=== PATIENT | female | born 1945 | race Asian ===

== ENCOUNTER 2019-08-11 13:34 | Inpatient (IN) | payer OTHER, BC ==
--- NOTE | 2019-08-11 14:30 | PDOC ---
History of Present Illness - General Chief Complaint: Back Pain Stated Complaint: PAIN Time Seen by Provider: 08/11/19 14:04 - History of Present Illness Initial Comments: Ms. Altamirano is a 73 y/o female with PMH significant for HTN and DM, sent in by Dr. Flores today. She was diagnosed with cholelithiasis about a year ago and was scheduled for an elective cholecystectomy by Dr. Nolasco on . On Monday, she started having right lower back pain and presented to Dr. Flores. She had a CT abd/pelv and US pelv done yesterday, which showed possible choledocholithiasis vs stone in the cystic duct. Sent in for possible cholecystectomy vs ERCP. At present, reports mild right lower back pain. Denies fever/chills. Denies chest pain/shortness of breath. Denies abdominal pain/dysuria. Denies cough. Denies fall. Past History - Past Medical History Allergies/Adverse Reactions: Allergies Allergy/AdvReac Type Severity Reaction Status Date / Time No Known Allergies Allergy Verified 08/11/19 13:39 Home Medications: Ambulatory Orders Albuterol Sulfate Inhaler - [Ventolin HFA Inhaler -] 1 - 2 inh PO Q4H PRN #1 inhaler 01/06/16 Glimepiride [Glimepiride -] 0 mg PO DAILY 01/06/16 Levofloxacin [Levaquin] 500 mg PO DAILY 01/06/16 Promethazine HCl [Phenergan Plain 6.25 MG/5 ML -] 6.25 mg PO PRN 01/06/16 Simvastatin [Zocor -] 10 mg PO DAILY 01/06/16 COPD: No Other medical history: gallstones - Psycho Social/Smoking Cessation Hx Smoking History: Never smoked Hx Alcohol Use: No Drug/Substance Use Hx: No Substance Use Type: None Review of Systems - Review of Systems Comments:: GENERAL/CONSTITUTIONAL: No fever or chills. No weakness._ HEAD, EYES, EARS, NOSE AND THROAT: No change in vision. No change in hearing. No sore throat._ CARDIOVASCULAR: No chest pain or shortness of breath_ RESPIRATORY: Denies cough, hemoptysis_ GASTROINTESTINAL: No nausea, vomiting, diarrhea or constipation._ GENITOURINARY: No dysuria, frequency, or change in urination._ MUSCULOSKELETAL: Reports right lower back pain. SKIN: No rash_ NEUROLOGIC: No headache, vertigo, loss of consciousness, or change in strength/ sensation._ ENDOCRINE: No increased thirst. No abnormal weight change_ HEMATOLOGIC/LYMPHATIC: No anemia, easy bleeding, or history of blood clots._ ALLERGIC/IMMUNOLOGIC: No hives or skin allergy._ *Physical Exam - Vital Signs Last Vital Signs Temp Pulse Resp BP Pulse Ox 98.3 F 82 18 145/62 99 08/11/19 13:36 08/11/19 13:36 08/11/19 13:36 08/11/19 13:36 08/11/19 13:36 - Physical Exam GENERAL: Awake, alert, and oriented to person/place/time, in no acute distress_ HEAD: No signs of trauma, normoc ephalic, atraumatic _ EYES: PERRLA, EOMI, sclera anicteric, conjunctiva clear_ ENT: Hearing grossly normal, nares patent, oropharynx clear without exudates. No uvular deviation. Moist mucosa_ NECK: Normal ROM, supple, no lymphadenopathy, JVD, or masses_ LUNGS: No distress, speaks in full sentences, clear to auscultation bilaterally _ HEART: Regular rate and rhythm, normal S1 and S2, no murmurs appreciated, peripheral pulses normal and equal bilaterally._ ABDOMEN: Soft, nontender, normoactive bowel sounds. No guarding, no rebound. No masses_ BACK: Mild TTP right lower back. EXTREMITIES: Normal inspection, Normal range of motion, no edema. No clubbing or cyanosis_ NEUROLOGICAL: Cranial nerves II through XII grossly intact. Normal speech, normal gait, no focal sensorimotor deficits _ SKIN: Warm, Dry, normal turgor, no rashes or lesions noted_ Medical Decision Making - Medical Decision Making 08/11/19 14:29 Pt sent in by Dr. Jacquie Flores for RUQ pain and right sided back pain and possible choledocholithiasis seen on CT scan yesterday. Pt scheduled for elective cholecystectomy on by Dr. Nolasco. 08/11/19 14:45 D/w Dr. Flores who accepts the patient for admission. Consult placed to Dr. Mcdonough per Dr. Flores's request for GI/ERCP. Discharge - Discharge Information Problems reviewed: Yes Clinical Impression/Diagnosis: Choledocholithiasis Condition: Stable - Admission Yes - Follow up/Referral - Patient Discharge Instructions - Post Discharge Activity
--- NOTE | 2019-08-11 14:43 | PDOC ---
Documentation entered by Abigail Bowles SCRIBE, acting as scribe for Micah Cabrera MD. Micah Cabrera MD: This documentation has been prepared by the Jelena gramajo Nirvannie, SCRIBE, under my direction and personally reviewed by me in its entirety. I confirm that the documentation accurately reflects all work, treatment, procedures, and medical decision making performed by me. Attending Attestation - Resident Resident Name: GuillermoLazaro - ED Attending Attestation I have performed the following: I have examined & evaluated the patient, The case was reviewed & discussed with the resident, I agree w/resident's findings & plan, Exceptions are as noted - HPI HPI: 08/11/19 14:40 The patient is a 73 year old female, with a significant past medical history of DM, who presents to the emergency department with low back pain and abdominal pain. Pt was being evaluated by Dr. Flores and had outpt US and CT that showed possible GB sludge. Pt was sent in for further evaluation and possible MRCP. She denies recent fevers, chills, headache or dizziness. She denies recent nausea, vomiting, diarrhea or constipation. She denies recent dysuria, frequency, urgency or hematuria. She denies recent chest pain or shortness of breath. Allergies: NKDA Primary Care Physician: Dr. Flores - Physicial Exam PE: 08/11/19 14:44 "GENERAL: Awake, alert, and fully oriented, in no acute distress. HEAD: No signs of trauma EYES: PERRLA, EOMI, sclera anicteric, conjunctiva clear ENT: Auricles normal inspection, hearing grossly normal, nares patent, oropharynx clear without exudates. Moist mucosa NECK: Nontender, no stepoffs, Normal ROM, supple, no lymphadenopathy, JVD, or masses LUNGS: Breath sounds equal, clear to auscultation bilaterally. No wheezes, and no crackles HEART: Regular rate and rhythm, normal S1 and S2, no murmurs, rubs or gallops ABDOMEN: Soft, nontender, normoactive bowel sounds. No guarding, no rebound. No masses EXTREMITIES: Normal range of motion, no edema. No clubbing or cyanosis. No cords, erythema, or tenderness NEUROLOGICAL: Cranial nerves II through XII intact. 5/5 strength and sensation in all extremities, Normal speech, normal gait, normal cerebellar function SKIN: Warm, Dry, normal turgor, no rashes or lesions noted. - Medical Decision Making 08/11/19 14:45 73 F with abnormal outpt imaging studies, sent in for GI eval and possible MRCP. - Labs - GI c/s - Admit Dr. Flores
[2019-08-11] MEDS ORDERED: ACETAMINOPHEN 325 MG TABLET (FP) PO PRN (15:09)
[2019-08-11 15:29] LABS: EOS % 4.6 % (0-4.5); HEMATOCRIT 39.3 % (32.4-45.2); HEMOGLOBIN 13.1 GM/dL (10.7-15.3); LYMPH % 33.3 % (8-40); MCH 29.5 pg (25.7-33.7); MCHC 33.3 g/dl (32.0-36.0); MEAN CELL VOLUME 88.6 fl (80-96); MEAN PLT VOLUME 8.8 fl (7.5-11.1); NEUT % 52.1 % (42.8-82.8); PLATELET COUNT 178 K/MM3 (134-434); RBC 4.43 M/mm3 (3.60-5.2); RDW 13.4 % (11.6-15.6)
[2019-08-11 15:46] LABS: INR 0.94 (0.83-1.09); PROTHROMBIN TIME (PATIENT) 11.1 SEC (9.7-13.0)
[2019-08-11 15:50] LABS: ALBUMIN 3.8 g/dl (3.4-5.0); BILIRUBIN,TOTAL 0.2 mg/dL (0.2-1); BLOOD UREA NITROGEN 17.4 mg/dL (7-18); CALCIUM 9.1 mg/dL (8.5-10.1); CREATININE 1.1 mg/dL (0.55-1.3); POTASSIUM 4.1 mmol/L (3.5-5.1); TOT PROT 7.7 g/dl (6.4-8.2)
[2019-08-11] MEDS: INSULIN SLIDING SCALE (NOVOLOG) 1 VIAL SQ SCH ×2 (16:05→22:14)
[2019-08-11 21:17] VITALS: BMI 24.6
[2019-08-11] MEDS: HEPARIN NA (PORCINE) 5,000 UNITS/ML 1ML VIAL SQ SCH (22:10)
[2019-08-12] MEDS: INSULIN SLIDING SCALE (NOVOLOG) 1 VIAL SQ SCH ×4 (06:10→21:53)
--- NOTE | 2019-08-12 08:49 | HP ---
Admitting History and Physical - Primary Care Physician PCP: Jacquie Flores S - Admission Chief Complaint: back pain gallstones History of Present Illness: The patient is a 73 year old female, with a significant past medical history of DM, who presents to the emergency department with low back pain and abdominal pain. Pt was being evaluated by me and had outpt US and CT that showed possible CBD stones . Pt was sent in for further evaluation and possible MRCP. She denies recent fevers, chills, headache or dizziness. She denies recent nausea, vomiting, diarrhea or constipation. She denies recent dysuria, frequency, urgency or hematuria. She denies recent chest pain or shortness of breath. 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) ...: No Endocrine: Yes: Diabetes Mellitus - Smoking History Smoking history: Never smoked - Alcohol/Substance Use Hx Alcohol Use: No History of Substance Use: reports: None - Social History Usual Living Arrangement: Yes: With Spouse Do you think of yourself as: Straight/Heterosexual ADL: Independent History of Recent Travel: No Home Medications - Allergies Allergies/Adverse Reactions: Allergies Allergy/AdvReac Type Severity Reaction Status Date / Time No Known Allergies Allergy Verified 08/11/19 13:39 - Home Medications Home Medications: Ambulatory Orders Glimepiride [Glimepiride -] 1 mg PO DAILY 01/06/16 Simvastatin [Zocor -] 10 mg PO HS 01/06/16 Family Medical History Family History: Unremarkable Review of Systems - Review of Systems Constitutional: denies: Chills, Fever, Lethargy, Loss of Appetite Eyes: denies: Blind Spots, Blurred Vision, Double Vision HENT: denies: Difficult Swallowing, Ear Pain, Epistaxis Neck: denies: Stiffness, Tenderness Cardiovascular: denies: Chest Pain, Palpitations, Shortness of Breath Respiratory: denies: Cough, SOB, SOB on Exertion Gastrointestinal: reports: Abdominal Pain (R sided). denies: Diarrhea, Vomiting Genitourinary: denies: Dysuria, Flank Pain Integumentary: denies: Bruising, Change in Color, Eczema, Erythema, Wound Neurological: denies: Change in LOC, Change in Speech, Confusion, Dizziness, Seizure, Syncope, Weakness Hematology/Lymphatic: denies: Easily Bruised, Excessive Bleeding Psychiatric: denies: Altered Sleep Pattern, Anxiety, Depression, Suicidal Physical Examination Vital Signs: Vital Signs Temperature 97.8 F 08/12/19 05:41 Pulse Rate 70 08/12/19 05:41 Respiratory Rate 18 08/12/19 05:41 Blood Pressure 106/76 08/12/19 05:41 O2 Sat by Pulse Oximetry (%) 99 08/11/19 21:00 Constitutional: Yes: No Distress, Calm Eyes: Yes: Conjunctiva Clear HENT: Yes: Atraumatic Neck: Yes: Supple Cardiovascular: Yes: Regular Rate and Rhythm Respiratory: Yes: Regular Gastrointestinal: Yes: Soft, Tenderness (mild R sided) Renal/: No: Hematuria Musculoskeletal: No: Joint Stiffness, Joint Swelling Extremities: No: Cold, Cool, Cyanosis Edema: No Neurological: Yes: WNL, Alert, Oriented ...Motor Strength: WNL Psychiatric: Yes: WNL, Alert, Oriented. No: Agitated, Suicidal Ideation Labs: CBC, BMP 08/11/19 15:09 08/11/19 15:09 Imaging - Results Chest X-ray: Report Reviewed Other: Report Reviewed Assessment/Plan The patient is a 73 year old female, with a significant past medical history of DM, who presents to the emergency department with low back pain and abdominal pain. H/o gallstones and possible stones in CBD. admit; MRCP; GI and surgery eval d/w pt and staff
--- NOTE | 2019-08-12 09:19 | EKG ---
Test Reason : Blood Pressure : / mmHG Vent. Rate : 065 BPM Atrial Rate : 065 BPM P-R Int : 190 ms QRS Dur : 090 ms QT Int : 404 ms P-R-T Axes : 062 070 064 degrees QTc Int : 420 ms NORMAL SINUS RHYTHM NORMAL ECG WHEN COMPARED WITH ECG OF 05-AUG-2019 10:09, NO SIGNIFICANT CHANGE WAS FOUND Confirmed by Ford Jennings ([id number]) on 08/12/2019 9:18:49 AM Referred By: Confirmed By:Ford Jennings
[2019-08-12] MEDS: HEPARIN NA (PORCINE) 5,000 UNITS/ML 1ML VIAL SQ SCH ×2 (09:31→21:54)
[2019-08-12 09:41] LABS: ALBUMIN 3.6 g/dl (3.4-5.0); BILIRUBIN,TOTAL 0.7 mg/dL (0.2-1); CALCIUM 8.8 mg/dL (8.5-10.1); CREATININE 0.8 mg/dL (0.55-1.3); POTASSIUM 4.1 mmol/L (3.5-5.1); TOT PROT 7.4 g/dl (6.4-8.2)
[2019-08-12 09:47] LABS: PROTHROMBIN TIME (PATIENT) 11.8 SEC (9.7-13.0)
[2019-08-12] MEDS ORDERED: INSULIN (NOVOLOG) ASPART 100 UNITS/ML 10ML VIAL ONE (11:53)
[2019-08-12 12:41] LABS: BASO % 1.4 % (0-2.0); EOS % 5.6 % (0-4.5); HEMATOCRIT 39.5 % (32.4-45.2); LYMPH % 35.9 % (8-40); MCH 29.8 pg (25.7-33.7); MEAN CELL VOLUME 90.3 fl (80-96); MEAN PLT VOLUME 9.5 fl (7.5-11.1); MONO % 10.8 % (3.8-10.2); NEUT % 46.3 % (42.8-82.8); PLATELET COUNT 170 K/MM3 (134-434); RBC 4.38 M/mm3 (3.60-5.2); WHITE BLOOD COUNT 5.2 K/mm3 (4.0-10.0)
--- NOTE | 2019-08-12 12:53 | CON.GI ---
Consult Consult Specialty:: Gastroenterology Referred by:: Dr Flores Reason for Consultation:: Gallstones - History of Present Illness Chief Complaint: low back pain History of Present Illness: 73F is scheduled for an elective cholecystectomy on 08/[address] Nolasco for gallstones that have been causing colicky lower back pain. Her CT now reveals stones at the cystic and common duct confluence. Her LFTs are WNL. NO chill or fevers. MRCP has already been ordered. She had an EGD with Dr. Lara on that revealed bile reflux gastritis and GERD. Colonoscopy on 05/07/15 revealed large internal hemorrhoids. - History Source History Provided By: Patient Limitations to Obtaining History: No Limitations - Past Medical History Cardio/Vascular: Yes: Hyperlipdemia Gastrointestinal: Yes: Other ([address] Lara) ...: No Endocrine: Yes: Diabetes Mellitus - Past Surgical History Past Surgical History: Yes: Cataract Removal - Alcohol/Substance Use Hx Alcohol Use: No History of Substance Use: reports: None - Smoking History Smoking history: Never smoked - Social History Usual Living Arrangement: With Spouse ADL: Independent Occupation: retired teacher Place of : Other ([employer] [facility] [employer]) Came to [place] (year): age 42 History of Recent Travel: No Home Medications - Allergies Allergies/Adverse Reactions: Allergies Allergy/AdvReac Type Severity Reaction Status Date / Time No Known Allergies Allergy Verified 08/11/19 13:39 - Home Medications Home Medications: Ambulatory Orders Glimepiride [Glimepiride -] 1 mg PO DAILY 01/06/16 Simvastatin [Zocor -] 10 mg PO HS 01/06/16 Family Medical History Family Hx Cardiac Disorders: Mother (CHF) Family Hx Diabetes: Mother (DM), Sister (paternal aunt had breast cancer) Other Family History: Father 76 HTN and RA, Mother 71, had DM and CHF Review of Systems - Review of Systems Constitutional: reports: No Symptoms Eyes: reports: No Symptoms HENT: reports: No Symptoms Neck: reports: No Symptoms Cardiovascular: reports: No Symptoms Respiratory: reports: No Symptoms Gastrointestinal: reports: No Symptoms Musculoskeletal: reports: Back Pain Physical Exam-GI Vital Signs: Vital Signs Temperature 97.8 F 08/12/19 05:41 Pulse Rate 70 08/12/19 05:41 Respiratory Rate 18 08/12/19 05:41 Blood Pressure 106/76 08/12/19 05:41 O2 Sat by Pulse Oximetry (%) 99 08/11/19 21:00 CBC,CMP WBC 5.2 K/mm3 (4.0-10.0) 08/12/19 07:38 RBC 4.38 M/mm3 (3.60-5.2) 08/12/19 07:38 Hgb 13.0 GM/dL (10.7-15.3) 08/12/19 07:38 Hct 39.5 % (32.4-45.2) 08/12/19 07:38 MCV 90.3 fl (80-96) 08/12/19 07:38 MCH 29.8 pg (25.7-33.7) 08/12/19 07:38 MCHC 33.0 g/dl (32.0-36.0) 08/12/19 07:38 RDW 13.0 % (11.6-15.6) 08/12/19 07:38 Plt Count 170 K/MM3 (134-434) 08/12/19 07:38 MPV 9.5 fl (7.5-11.1) 08/12/19 07:38 Absolute Neuts (auto) 2.4 K/mm3 (1.5-8.0) 08/12/19 07:38 Neutrophils % 46.3 % (42.8-82.8) 08/12/19 07:38 Lymphocytes % 35.9 % (8-40) 08/12/19 07:38 Monocytes % 10.8 % (3.8-10.2) H 08/12/19 07:38 Eosinophils % 5.6 % (0-4.5) H 08/12/19 07:38 Basophils % 1.4 % (0-2.0) 08/12/19 07:38 Nucleated RBC % 0 % (0-0) 08/12/19 07:38 Sodium 139 mmol/L (136-145) 08/12/19 07:38 Potassium 4.1 mmol/L (3.5-5.1) 08/12/19 07:38 Chloride 106 mmol/L (98-107) 08/12/19 07:38 Carbon Dioxide 28 mmol/L (21-32) 08/12/19 07:38 Anion Gap 5 MMOL/L (8-16) L 08/12/19 07:38 BUN 15.0 mg/dL (7-18) 08/12/19 07:38 Creatinine 0.8 mg/dL (0.55-1.3) 08/12/19 07:38 Est GFR (CKD-EPI)AfAm 85.97 08/12/19 07:38 Est GFR (CKD-EPI)NonAf 74.17 08/12/19 07:38 POC Glucometer 105 UNITS (80-120) 08/12/19 05:56 Random Glucose 102 mg/dL (74-106) 08/12/19 07:38 Calcium 8.8 mg/dL (8.5-10.1) 08/12/19 07:38 Total Bilirubin 0.7 mg/dL (0.2-1) 08/12/19 07:38 AST 20 U/L (15-37) 08/12/19 07:38 ALT 26 U/L (13-61) 08/12/19 07:38 Alkaline Phosphatase 62 U/L (45-117) 08/12/19 07:38 Total Protein 7.4 g/dl (6.4-8.2) 08/12/19 07:38 Albumin 3.6 g/dl (3.4-5.0) 08/12/19 07:38 Current Medications Generic Name Dose Route Start Last Admin Trade Name Freq PRN Reason Stop Dose Admin Acetaminophen 650 mg 08/11/19 15:09 Tylenol - PO Q6H PRN PAIN Heparin Sodium (Porcine) 5,000 unit 08/11/19 22:00 08/12/19 09:31 Heparin - SQ 5,000 unit BID VETO Administration Insulin Aspart 1 vial 08/11/19 16:30 08/12/19 12:39 Novolog Vial Sliding Scale - SQ Not Given ACHS [facility] Protocol Constitutional: Yes: Calm Eyes: Yes: Conjunctiva Clear HENT: Yes: Normocephalic Neck: Yes: Trachea Midline Cardiovascular: Yes: Regular Rate and Rhythm Respiratory: Yes: CTA Bilaterally Gastrointestinal Inspection: Yes: WNL ...Auscultate: Yes: Normoactive Bowel Sounds ...Palpate: Yes: Soft, Other (nontender) ...Rectal Exam: Yes: Guaiac Negative (no masses) Labs: CBC, BMP 08/12/19 07:38 08/12/19 07:38 INR, PTT INR 1.00 (0.83-1.09) 08/12/19 07:38 Problem List - Problems (1) Gallstones Code(s): K80.20 - CALCULUS OF GALLBLADDER W/O CHOLECYSTITIS W/O OBSTRUCTION (2) Choledocholithiasis Code(s): K80.50 - CALCULUS OF BILE DUCT W/O CHOLANGITIS OR CHOLECYST W/O OBST (3) Diabetes 1.5, managed as type 2 Code(s): E13.9 - OTHER SPECIFIED DIABETES MELLITUS WITHOUT COMPLICATIONS (4) Hyperlipidemia Code(s): E78.5 - HYPERLIPIDEMIA, UNSPECIFIED (5) GERD (gastroesophageal reflux disease) Code(s): K21.9 - GASTRO-ESOPHAGEAL REFLUX DISEASE WITHOUT ESOPHAGITIS Assessment/Plan Assessment: - Vickie will need an MRCP to exclude CBD stones. I explained that her normal LFTs and lack of ductal dilation argue against this. If CBD stones are found then I will schedule and ERCP. I have discussed ERCP in detail including informing her of the potential for such complications as perforation, hemorrhage and ERCP induced pancreatitis leading to multiorgan failure. She is in a position to make an informed consent. Plan: -- Await MRCP, if positive will proceed with ERCP; if not then cholcystectomy
--- NOTE | 2019-08-12 13:09 | PN ---
Progress Note (short form) - Note Progress Note: surgery 73f with known biliary colic. scheduled for cholecystectomy. found to have possible choledocholithiasis on CT during workup of low back pain. abd- soft, nt Laboratory Tests 08/12/19 08/12/19 07:38 07:38 WBC 5.2 Total Bilirubin 0.7 AST 20 ALT 26 Alkaline Phosphatase 62 plan- biliary colic. mrcp to r/o choledocholithiais. if mrcp negative will likely proceed with cholecystectomy this admission. tentatively scheduled 9am Monday
--- NOTE | 2019-08-12 13:57 | CONS ---
DATE OF CONSULTATION: 08/12/2019 REASON FOR CONSULTATION: Cholelithiasis, abdominal pain, choledocholithiasis. This is an inpatient consultation at the request of Dr. Jacquie Flores. BRIEF HISTORY: This is a 73-year-old female with known biliary colic scheduled for cholecystectomy on August 21 who has been complaining of lower back pain. She had an outpatient CAT scan of her abdomen and pelvis, which suggested the possibility of a common bile duct stone. She was admitted to the hospital. Noted to have normal liver function tests. MRCP was ordered at request of the radiologist. PAST MEDICAL HISTORY: Significant for hyperlipidemia. Diabetes. PAST SURGICAL HISTORY: Includes only cataract. SOCIAL HISTORY: Negative for alcohol, negative for tobacco. ALLERGIES: She has no known drug allergies. HOME MEDICATIONS: Include Zocor and glimepiride. FAMILY HISTORY: Negative for malignancy in the immediate family. REVIEW OF SYSTEMS: General: Denies fatigue or malaise. Cardiac: Denies chest pain or palpitations. Respiratory: Denies shortness of breath or wheeze. Gastrointestinal: No nausea, no vomiting, no diarrhea, no constipation, no blood in her stool. Admits to occasional upper abdominal pain after eating fatty meals. Genitourinary: Admits to lower back pain. Denies dysuria. Musculoskeletal: Denies joint pain. Psychiatric: Denies anxiety, depression, or hearing voices. PHYSICAL EXAMINATION: General: This is a well-developed, well-nourished 73-year-old female in no distress. Vital Signs: She is afebrile. Her vital signs are stable. HEENT: Her head is normocephalic. Her sclerae are anicteric. Neck: Supple. Chest: Clear. Abdomen: Soft, nontender. She has a small ventral hernia at the midportion of her abdomen. Skin: She has no surgical scars. Extremities: Have no edema. DIAGNOSTIC DATA: On review of her laboratory, a white blood cell count is normal. Her liver function tests are normal. There is no urinalysis available now, but on August 05, it was unremarkable. Review of her imaging, she had a CAT scan, which is as stated in the HPI. She also had an ultrasound done on January 23, 2019, which showed cholelithiasis. ASSESSMENT: This is a 73-year-old female with history of symptomatic cholelithiasis with lower back pain now with a CAT scan suggesting the possibility of choledocholithiasis. PLAN: An MRCP has been ordered. If this confirms that the common bile duct is not with stones, which would be most likely clinically since the duct is not dilated and since there are normal liver function tests, I will likely be able to safely proceed with cholecystectomy. This could possibly be done this admission if the patient agrees with tentative time for tomorrow morning. If, however, there are stones found on MRCP, she may benefit from an ERCP first. At this point, we will follow MRCP and make further recommendations. Risks and benefits of surgery have been explained to patient in detail. These are including, but not limited to, the possibility of conversion to open, possibility of common bile duct injury, possibility of cystic duct stump leak, possibility of injury to viscera, possibility of retained stone, possibility of blood loss requiring blood transfusion, possibility of future obstruction, possibility of future hernia plus a multitude of medical risks including, but not limited to, cardiac, neurologic, pulmonary, and vascular complications, even . The patient understands these risks and is agreeable to surgery. DO JESSICA NIXON/[id number]
[2019-08-12] MEDS ORDERED: PT OWN MED DRAWER 7, Y5N ONE (17:13)
[2019-08-13] MEDS: INSULIN SLIDING SCALE (NOVOLOG) 1 VIAL SQ SCH ×4 (06:55→21:28)
--- NOTE | 2019-08-13 07:07 | PN ---
Progress Note, Physician Chief Complaint: in bed NAD afebrile no pain awaiting MRI d/w surgery and pt if no CBD stones to have cholecystectomy today she agreed - Current Medication List Current Medications: Active Medications Acetaminophen (Tylenol -) 650 mg PO Q6H PRN PRN Reason: PAIN Heparin Sodium (Porcine) (Heparin -) 5,000 unit SQ BID VETO Last Admin: 08/12/19 21:54 Dose: 5,000 unit Insulin Aspart (Novolog Vial Sliding Scale -) 1 vial SQ ACHS [facility]; Protocol Last Admin: 08/13/19 06:55 Dose: Not Given - Objective Vital Signs: Vital Signs Temperature 97.5 F L 08/13/19 06:00 Pulse Rate 58 L 08/13/19 06:00 Respiratory Rate 18 08/13/19 06:00 Blood Pressure 135/59 L 08/13/19 06:00 O2 Sat by Pulse Oximetry (%) 99 08/12/19 09:00 Constitutional: Yes: No Distress Eyes: Yes: Conjunctiva Clear HENT: Yes: Atraumatic Neck: Yes: Supple Cardiovascular: Yes: Regular Rate and Rhythm Respiratory: Yes: CTA Bilaterally Gastrointestinal: Yes: Soft. No: Tenderness Genitourinary: No: Hematuria Musculoskeletal: No: Joint Stiffness, Joint Swelling Extremities: No: Cold, Cool, Cyanosis Edema: No Integumentary: No: Rash, Venous Stasis Changes Neurological: Yes: Alert, Oriented ...Motor Strength: WNL Psychiatric: Yes: Alert, Oriented. No: Agitated, Suicidal Ideation Labs: CBC, BMP 08/12/19 07:38 08/12/19 07:38 INR, PTT INR 1.00 (0.83-1.09) 08/12/19 07:38 - ....Imaging Other: Report Reviewed Assessment/Plan The patient is a 73 year old female, with a significant past medical history of DM, who presents to the emergency department with low back pain and abdominal pain. H/o gallstones and possible stones in CBD. MRCP; GI and surgery eval if no CBD stones for cholecystectomy today d/w pt and staff d/w surgery dr Irvin pt agreed with plan
[2019-08-13] MEDS: HEPARIN NA (PORCINE) 5,000 UNITS/ML 1ML VIAL SQ SCH ×2 (10:28→21:28)
[2019-08-13] MEDS ORDERED: ONDANSETRON 4 MG/2 ML VIAL IVPUSH PRN (12:21)
[2019-08-13] MEDS ORDERED: MORPHINE SULFATE 8 MG/ML VIAL IVPB PRN (12:21)
[2019-08-13] MEDS ORDERED: oxyCODONE HCL 5 MG TABLET PO PRN (12:21)
[2019-08-13] MEDS ORDERED: fentaNYL CITRATE 250 MCG/5 ML VIAL ONE (12:24)
[2019-08-13] MEDS ORDERED: ROCURONIUM BROMIDE 50 MG/5 ML SYRINGE ONE (12:25)
[2019-08-13] MEDS ORDERED: PROPOFOL 20 ML ONE ×2 (12:25)
[2019-08-13] MEDS ORDERED: MIDAZOLAM HCL 2 MG/2 ML SINGLE DOSE VIAL ONE (12:25)
--- NOTE | 2019-08-13 12:25 | OP ---
Operative Note - Note: Operative Date: 08/13/19 Pre-Operative Diagnosis: acute cholecystitis,cholelithiasis Operation: laparoscopic cholecystectomy, lavage Findings: distended edematous gb with large stone, hydrops Post-Operative Diagnosis: Same as Pre-op Surgeon: Marquis Irvin Barrel Leveler: Lynda Mcqueen Anesthesiologist/FIELD SOFTWARE ENGINEER: Neema Medrano Anesthesia: General (v) Specimens Removed: gb Estimated Blood Loss (mls): 10 Operative Report Dictated: Yes
--- NOTE | 2019-08-13 12:28 | PN ---
Progress Note (short form) - Note Progress Note: surgery mrcp shows no choledocholithiasis but hydrops of gb. pt till with some pain abd- mild ruq tenderness Plan- likley acute on chronic cholecystitis. will proceed with cholecystectomy. invanz.
[2019-08-13] MEDS ORDERED: morphine SULFATE 4 MG/ML VIAL IVPB PRN (12:49)
[2019-08-13] MEDS ORDERED: ERTAPENEM SODIUM 1 GM in SODIUM CHLORIDE 50 ML IVPB ONE (13:00)
[2019-08-13] MEDS ORDERED: ERTAPENEM SODIUM 1 GM VIAL IVPB ONE (13:05)
[2019-08-13] MEDS ORDERED: GLYCOPYRROLATE 0.2 MG/1 ML VIAL ONE (13:23)
[2019-08-13] MEDS ORDERED: DEXAMETHASONE SOD PHOSPHATE 4 MG/1 ML VIAL ONE (13:23)
[2019-08-13] MEDS ORDERED: NEOSTIGMINE METHYLSULFATE 0.5 MG/ML - 10 ML MDV ONE (13:24)
[2019-08-13] MEDS ORDERED: IBUPROFEN 800 MG/8 ML IJ IVPB PRN (14:11)
[2019-08-13] MEDS ORDERED: LACTATED RINGERS SOLUTION 1,000 ML IV SCH (14:15)
[2019-08-13] MEDS ORDERED: ACETAMINOPHEN 325 MG TABLET (FP) PO PRN (14:19)
--- NOTE | 2019-08-13 15:07 | OP ---
DATE OF OPERATION: 08/13/2019 PREOPERATIVE DIAGNOSIS: Acute cholecystitis, cholelithiasis. POSTOPERATIVE DIAGNOSIS: Acute cholecystitis, cholelithiasis. PROCEDURE: Laparoscopic cholecystectomy and lavage. SURGEON: Marquis Irvin DO AUTOMATION MECHANIC: RUEL Salazar ANESTHESIOLOGIST: Neema Medrano MD SPECIMEN: Gallbladder. INTRAOPERATIVE FINDINGS: A distended, inflamed gallbladder with hydrops and a large stone. BLOOD LOSS: Approximately 30 mL. DRAINS: None. DISPOSITION: Recovery room in stable condition. BRIEF HISTORY: A 73-year-old, female with history of biliary colic who developed abdominal pain and had an outpatient CAT scan suggestive of possible choledocholithiasis. She was admitted to the hospital. Had an ERCP, which showed no choledocholithiasis, but showed acute cholecystitis with hydrops of the gallbladder. She presents now for cholecystectomy. She was given Invanz, prior to procedure. PROCEDURE: The patient was placed in the supine position. After general anesthesia was initiated, the abdomen was prepped and draped in sterile fashion. A transverse incision was made infraumbilical with scalpel used to go through skin and subcutaneous tissue. The fascia was lifted with a Dhara clamp, Veress needle was inserted, and pneumoperitoneum was created. Next, a 10-mm, 0-degree laparoscope was placed, followed by insertion of additional 11-mm trocar subxiphoid and two 5-mm trocars placed in the right upper quadrant. Attention was then turned toward the gallbladder. It was distended, edematous, consistent with acute cholecystitis. A Veress needle decompression was done, in order to enable grasping of the gallbladder. Hydrops was confirmed. The fundus was lifted cephalad. The infundibulum retracted laterally. The peritoneal peel was dissected down, exposing a small cystic duct and cystic artery. Both were clipped and divided. The gallbladder was then liberated from the liver bed using electrocautery and hemostasis was maintained using electrocautery. The gallbladder was placed in a specimen bag, removed through the infraumbilical trocar site, after a significant fascial dilatation, and sent to Pathology marked as specimen. A vigorous lavage was then done and all return was clear. Trocars were removed under direct visualization, as pneumoperitoneum was released, and no bleeding was noted. Next, the fascia of the infraumbilical trocar site was closed with multiple interrupted 0 Vicryl sutures and the four skin incisions were closed with Biosyn. A Dermabond dressing was placed. Overall, the patient tolerated procedure well. There were no complications. DO JESSICA NIXON/[id number] MTDD
--- NOTE | 2019-08-13 15:25 | SURG ---
Surgery Bar Examiner Note Bar Examiner: Lynda Mcqueen PA-C Date of Service: 08/13/19 Diagnosis: acute cholecystitis,cholelithiasis Procedure: laparoscopic cholecystectomy, lavage I was present for the entirety of the operative procedure. For further detail, please refer to operative report. Visit type - Case Type Case Type: ED Admission - Emergency Emergency Visit: Yes ED Registration Date: 08/11/19 Care time: The patient presented to the Emergency Department on the above date and was hospitalized for further evaluation of their emergent condition. - New patient This patient is new to me today: Yes Date on this admission: 08/13/19
[2019-08-13] MEDS: D5-1/2NS+20 MEQ KCL - 20 MEQ/1,000 ML INFUS.BAG IV SCH (16:00)
--- NOTE | 2019-08-13 20:24 | PN.GI ---
GI Progress Note Subjective: GI Note: MRCP negative so underwent cholcystectomy today - Objective Vital Signs: Vital Signs Temperature 97.0 F L 08/13/19 16:21 Pulse Rate 49 L 08/13/19 16:21 Respiratory Rate 16 08/13/19 16:21 Blood Pressure 139/55 L 08/13/19 16:21 O2 Sat by Pulse Oximetry (%) 100 08/13/19 16:21 Constitutional: Calm Gastrointestinal Inspection: Yes: Other (healing laparoscopic incisions) ...Auscultate: Yes: Hypoactive Bowel Sounds Labs: CBC, BMP 08/12/19 07:38 08/12/19 07:38 INR, PTT INR 1.00 (0.83-1.09) 08/12/19 07:38 Assessment/Plan Assessment: - Choledocholithiasis excluded by MRCP now s/p lap choly. Plan: -- Postop care as per surgical team -- Please recall us as needed Problem List - Problems (1) Gallstones Problems reviewed: Yes Code(s): K80.20 - CALCULUS OF GALLBLADDER W/O CHOLECYSTITIS W/O OBSTRUCTION (2) Choledocholithiasis Problems reviewed: Yes Code(s): K80.50 - CALCULUS OF BILE DUCT W/O CHOLANGITIS OR CHOLECYST W/O OBST (3) Diabetes 1.5, managed as type 2 Code(s): E13.9 - OTHER SPECIFIED DIABETES MELLITUS WITHOUT COMPLICATIONS (4) Hyperlipidemia Code(s): E78.5 - HYPERLIPIDEMIA, UNSPECIFIED (5) GERD (gastroesophageal reflux disease) Code(s): K21.9 - GASTRO-ESOPHAGEAL REFLUX DISEASE WITHOUT ESOPHAGITIS
[2019-08-13] MEDS ORDERED: INSULIN (NOVOLOG) ASPART 100 UNITS/ML 10ML VIAL ONE (21:10)
[2019-08-14] MEDS: D5-1/2NS+20 MEQ KCL - 20 MEQ/1,000 ML INFUS.BAG IV SCH (02:53)
[2019-08-14] MEDS: INSULIN SLIDING SCALE (NOVOLOG) 1 VIAL SQ SCH ×2 (06:37→11:54)
--- NOTE | 2019-08-14 07:16 | DS ---
Physical Examination Vital Signs: Vital Signs Temperature 97.7 F 08/13/19 21:27 Pulse Rate 74 08/13/19 21:27 Respiratory Rate 20 08/13/19 20:51 Blood Pressure 129/62 08/13/19 21:27 O2 Sat by Pulse Oximetry (%) 100 08/13/19 20:51 Findings/Remarks: s/p cholecystectomy yesterday now feels well mild pain ate a little no BM yet but passed gas cleared by surgery to go home today; f/u with GI and surgery in 1-2 weeks at bedside; ambulates in hallway Constitutional: Yes: No Distress, Calm Eyes: Yes: Conjunctiva Clear HENT: Yes: Atraumatic Neck: Yes: Supple Cardiovascular: Yes: Regular Rate and Rhythm Respiratory: Yes: CTA Bilaterally Gastrointestinal: Yes: Soft, Tenderness (mild postop) Renal/: No: Hematuria Musculoskeletal: No: Joint Stiffness, Joint Swelling Extremities: No: Cold, Cool, Cyanosis Edema: No Integumentary: No: Rash, Venous Stasis Changes Neurological: Yes: WNL, Alert, Oriented ...Motor Strength: WNL Psychiatric: Yes: WNL, Alert, Oriented. No: Agitated, Suicidal Ideation Labs: CBC, BMP 08/12/19 07:38 08/12/19 07:38 Discharge Summary Problems reviewed: Yes Reason For Visit: BACK PAIN Current Active Problems Choledocholithiasis (Acute) Diabetes 1.5, managed as type 2 (Acute) GERD (gastroesophageal reflux disease) (Acute) Gallstones (Acute) Hyperlipidemia (Acute) Procedures: Principal: 73 YOF DM HLP gallstones admitted with pain biliary colic ; CT c/w gallstones and possible CBD stones but MRI no CBD stones. Other Procedures: seen by GI and surgery; ahd cholecystectomy tolerated well. Hospital Course: improved with above, DC home and f/u as advised; percocet prn dw pt possible SE take for severe pain only; constipation pfx fibers and po water. Condition: Stable - Instructions Diet, Activity, Other Instructions: f/u PCP GI and surgery in 1-2 weeks postop Dear JAYJAY DOWNEY, Post Operative Instructions Physical activity Resume your normal everyday activity as tolerated no heavy lifting or exercise until seen by your surgeon. You may walk unlimited amounts of and climb stairs. You may resume driving the car when you feel safe and comfortable behind the wheel. Wound care You may shower 2 days after surgery. Keep area clean and dry. No baths/showering Diet There are no dietary restrictions. Eat healthy, high-fiber foods. Drink 6 to 8 glasses of liquid each day. This will assist in keeping your bowels are regular. Pain management You may take Tylenol or acetaminophen or Ibuprofen (for example, Motrin, Advil etc.) Any pain prescription medication ordered should be taken as prescribed for moderate to severe pain. Call Dr. Irvin for any of the following: Severe pain not relieved by medication Fever of 101 or higher Excessive bleeding or drainage on dressing Inability to urinate Call the office for a post operative appointment in 7 - 10 days. Referrals: Jacquie Flores [Primary Care Provider] - Marquis Irvin MD [Staff Physician] - Disposition: HOME - Home Medications Comprehensive Discharge Medication List: Ambulatory Orders Glimepiride [Glimepiride -] 1 mg PO DAILY 01/06/16 Simvastatin [Zocor -] 10 mg PO HS 01/06/16
[2019-08-14] MEDS ORDERED: ERTAPENEM SODIUM 1 GM in SODIUM CHLORIDE 50 ML IVPB ONE (09:00)
[2019-08-14 09:11] VITALS: BP 131/77; PULSE 66; TEMP 97.4
[2019-08-14] MEDS ORDERED: PT OWN MED DRAWER 7, Y5N ONE (09:42)
[2019-08-14] MEDS ORDERED: PANTOPRAZOLE SODIUM 40 MG VIAL IVPUSH SCH (10:00)
[2019-08-14] MEDS: HEPARIN NA (PORCINE) 5,000 UNITS/ML 1ML VIAL SQ SCH (10:03)
--- NOTE | 2019-08-15 16:30 | PATH ---
Surgical Pathology Report Patient Name: JAYJAY DOWNEY [facility]. Rec. #: [id number] /Age/Gender: 1945 (Age: 73) / F Account: [id number] Location: [address] [place] [address]/[facility] Taken: 08/13/2019 Received: 08/14/2019 Reported: 08/15/2019 Physicians: Alon Moreau M.D. Specimen(s) Received GALLBLADDER Clinical History Back pain, cholecystitis Final Diagnosis GALLBLADDER, CHOLECYSTECTOMY CHRONIC CHOLECYSTITIS AND CHOLELITHIASIS. Electronically Signed Alexx Carter M.D. Gross Description Received in formalin, labeled "gallbladder," is a 9.0 x 3.5 x 3.0 cm. gallbladder with a 0.2 cm. in length portion of cystic duct attached. The outer surface is trevino-villa and varies from smooth to shaggy. The lumen contains white, chalky bile. There is a 0.8 cm in greatest dimension trevino-white cholelith occluding the cystic duct lumen. The mucosa is completely eroded. The wall of the gallbladder measures 0.1 cm. in thickness. Health Informatics Specialist sections are submitted in one cassette. 08/14/2019 [facility]08/14/2019
== END 2019-08-14 14:08 | disposition home or self-care (01) | DRG 418 ==
LOC: JER 13:34 → SUPCPDRO 13:34 → JERBED 14:35 → J6S 17:59
PROVIDERS: ADMIT Internal Medicine; ATTEND Internal Medicine
PROC: 0FT44ZZ Resection of Gallbladder, Percutaneous Endoscopic Approach (ICD-10-PCS; principal; 2019-08-13 10:30)
DX: K80.12 Calculus of gallbladder with acute and chronic cholecystitis without obstruction (principal); K82.1 Hydrops of gallbladder; I10 Essential (primary) hypertension; E11.9 Type 2 diabetes mellitus without complications; K21.9 Gastro-esophageal reflux disease without esophagitis; E78.5 Hyperlipidemia, unspecified
CPT/HCPCS: 36415; 71045-TC-FY; 72100-TC-FY; 74176-TC; 74181-TC; 76700-TC; 76775-TC; 76856-TC; 80053; 82962; 85025; 85610; 85730; 86850; 86900; 86901; 93005; 93010; 94010; 94760; 99284-25; J1644

== ENCOUNTER 2023-10-19 04:36 | Day surgery (SDC) | payer OTHER, BC ==
[2023-10-16 11:35] VITALS: BMI 25.6
[2023-10-19 11:20] VITALS: TEMP 98
[2023-10-19 11:21] VITALS: PULSE 61
[2023-10-19 11:44] VITALS: BP 130/67; RESP 14
== END 2023-10-19 11:47 | disposition home or self-care (01) ==
LOC: JASU-ENDO 04:36
PROVIDERS: ATTEND Internal Medicine Gastroenterology
PROC: 0DBK8ZX Excision of Ascending Colon, Via Natural or Artificial Opening Endoscopic, Diagnostic (ICD-10-PCS; principal; 2023-10-19 10:00)
DX: Z12.11 Encounter for screening for malignant neoplasm of colon (principal); D12.2 Benign neoplasm of ascending colon; K64.8 Other hemorrhoids
CPT/HCPCS: 82962; 88305-TC